=== PATIENT | male | born 1980 | race Caucasian/White ===

== ENCOUNTER 2021-06-29 11:07 | Emergency (ER) | payer OTHER ==
[~2021-06-29] VITALS: Ht 185.4 cm; Wt 99.8 kg
--- NOTE | 2021-06-29 11:18 | NUR ---
SENT HERE BY [facility] DUE TO C/O "FATIGUE/DIZZINESS AND NAUSEA " X 2 DAYS. PT AAOX4, VSS. RR EVEN & UNLABORED. DENIES CP, SOB, ABD PAIN AT THIS TIME. AWAITING EVAL BY ERMD. WILL CONT TO MONITOR.
--- NOTE | 2021-06-29 11:21 | NUR ---
DR. BERNAL AT FOR JUANYAL.
[2021-06-29 13:00] LABS: CALCIUM, SERUM 8.4 mg/dL (8.5-10.1); CREATININE 0.8 mg/dL (0.6-1.3)
[2021-06-29 13:01] LABS: BASOPHILS % (AUTO) 0.6 % (0.0-2.0); HEMATOCRIT 43 % (39-51); HEMOGLOBIN 15.4 g/dL (13.5-17.5); LYMPHOCYTES # (AUTO) 0.5 K/uL (0.8-4.8); LYMPHOCYTES % (AUTO) 26.3 % (20.0-44.0); MEAN CORPUSCULAR HGB CONC 36 g/dl (31.0-36.0); MEAN CORPUSCULAR VOLUME 93 fL (80-96); MONOCYTES # (AUTO) 0.1 K/uL (0.1-1.30); MONOCYTES % (AUTO) 7.3 % (2.0-12.0); NEUTROPHILS # (AUTO) 1.1 K/uL (1.8-8.9); NEUTROPHILS % (AUTO) 62.8 % (43.0-81.0); RED BLOOD CELL COUNT(AUTO) 4.67 MIL/uL (4.5-6.0)
[2021-06-29 13:07] LABS: PLATELET COUNT (AUTO) 41 K/uL (150-450); WHITE BLOOD COUNT (AUTO) 1.8 K/uL (4.3-11.0)
[2021-06-29 13:08] LABS: ALBUMIN 3.4 g/dL (3.4-5.0); BILIRUBIN,DIRECT 0.3 mg/dL (0.0-0.2); TOTAL PROTEIN, SERUM 7.1 g/dL (6.4-8.2)
--- NOTE | 2021-06-29 14:09 | NUR ---
PT BACK FROM CT. PT EATING SNACKS. VSS. RR EVEN & UNLABORED. DENIES CP, SOB, N/V AT THIS TIME. WILL CONT TO MONITOR.
[2021-06-29 15:03] VITALS: BP 103/76
--- NOTE | 2021-06-29 15:03 | NUR ---
Patient discharged to home in stable condition. Written and verbal after care instructions given. Patient verbalizes understanding of instruction.
[2021-06-29 15:19] LABS: LYMPHOCYTES % (MANUAL) 34 % (16-48); MONOCYTES % (MANUAL) 4 % (0-11.0); NEUTROPHILS % (MANUAL) 62 (42-76)
== END 2021-06-29 15:05 | disposition home or self-care (01) ==
LOC: ER 11:13
DX: R53.83 Other fatigue (principal); R11.0 Nausea; D72.819 Decreased white blood cell count, unspecified; D69.6 Thrombocytopenia, unspecified; R51.9 Headache, unspecified; F32.9 Major depressive disorder, single episode, unspecified; F17.200 Nicotine dependence, unspecified, uncomplicated; Z60.2 Problems related to living alone
CPT/HCPCS: 36415; 70450-TC; 80048-TC; 80076-TC; 83690-TC; 85025-TC